=== PATIENT | female | born 1960 | race Caucasian/White ===

== ENCOUNTER → 2017-08-18 | Outpatient (CLI) | payer OTHER ==
--- NOTE | 2017-08-18 11:37 | MM ---
Reason for exam: screening (asymptomatic). Last mammogram was performed 1 year ago. History: Patient is postmenopausal. Family history of premenopausal breast cancer in paternal aunt at age 40. Physical Findings: A clinical breast exam by your physician is recommended on an annual basis and results should be correlated with mammographic findings. MG Screening Mammo w CAD Bilateral CC and MLO view(s) were taken. Prior study comparison: August 17, 2016, bilateral MG 3d screening mammo w/cad. August 14, 2015, bilateral MG 3d screening mammo w/cad. There are scattered fibroglandular densities. There is chronic nodularity in the right breast. Asymmetric breast tissue in the left breast, stable. There is no discrete abnormality. ASSESSMENT: Benign, BI-RAD 2 RECOMMENDATION: Routine screening mammogram of both breasts in 1 year.
== END | disposition home or self-care (01) ==
LOC: RADMAMWWP 07:03
PROVIDERS: ATTEND Family Medicine
DX: Z12.31 Encounter for screening mammogram for malignant neoplasm of breast (principal)

== ENCOUNTER → 2018-08-19 | Outpatient (CLI) | payer BC ==
--- NOTE | 2018-08-19 09:27 | BD ---
EXAMINATION TYPE: Axial Bone Density DATE OF EXAM: 08/19/2018 COMPARISON: NONE CLINICAL HISTORY: Height: 65.5 Weight: 203.2 FRAX RISK QUESTIONS: Alcohol (3 or more units per day): no Family History (Parent hip fracture): no Glucocorticoids (More than 3mos): no (Ex: prednisone, prednisolone, methylprednisolone, dexamethasone, and hydrocortisone). History of Fracture in Adulthood: no Secondary Osteoporosis: 1. Type 1 Diabetes: no 2. Hyperthyroidism: no 3. Menopause before 45: yes 4. Malnutrition: NO 5. Chronic liver disease: no Rheumatoid Arthritis: no Current Tobacco Use: no RISK FACTORS HISTORY OF: Family History of Osteoporosis: yes Active: yes Diet low in dairy products/other sources of calcium: yes Postmenopausal woman: hysterectomy age 46 Lost more than 2 inches in height since high school: yes MEDICATIONS: none Additional History: EXAM MEASUREMENTS: Bone mineral densitometry was performed using the [employer] System. Bone mineral density as measured about the Lumbar spine is: ----- L1-L4(G/cm2): 1.090 T Score Values are as follows: ----- L2: -0.4 ----- L3: -0.7 ----- L4: -0.9 ----- L1-L4: -0.7 Bone mineral density : baseline Bone mineral density about the R hip (g/cm2): 0.899 Bone mineral density about the L hip (g/cm2): 0.886 T Score values are as follows: -----R Neck: -1.0 -----L Neck: -1.1 -----R Total: -0.9 -----L Total: -0.8 Bone mineral density : baseline IMPRESSION: No evidence for osteoporosis or osteopenia. NOTE: T-SCORE=SD OF THE YOUNG ADULT MEAN.
--- NOTE | 2018-08-22 11:58 | MM ---
Reason for exam: screening (asymptomatic). Last mammogram was performed 1 year ago. History: Patient is postmenopausal. Family history of premenopausal breast cancer in paternal aunt at age 40. Physical Findings: A clinical breast exam by your physician is recommended on an annual basis and results should be correlated with mammographic findings. MG 3D Screening Mammo W/Cad Bilateral CC and MLO view(s) were taken. Prior study comparison: August 18, 2017, bilateral MG screening mammo w CAD. August 17, 2016, bilateral MG 3d screening mammo w/cad. The breast tissue is heterogeneously dense. This may lower the sensitivity of mammography. There is chronic nodularity in the right breast. No significant changes when compared with prior studies. ASSESSMENT: Benign, BI-RAD 2 RECOMMENDATION: Routine screening mammogram of both breasts in 1 year.
== END | disposition home or self-care (01) ==
LOC: RADMAMWWP 07:04
PROVIDERS: ATTEND Family Medicine
DX: Z12.31 Encounter for screening mammogram for malignant neoplasm of breast (principal); Z13.820 Encounter for screening for osteoporosis
CPT/HCPCS: 77063; 77067; 77080

== ENCOUNTER → 2019-10-19 | Outpatient (CLI) | payer BC ==
--- NOTE | 2019-10-20 13:37 | MM ---
Reason for exam: screening (asymptomatic). Last mammogram was performed 1 year and 2 months ago. History: Patient is postmenopausal. Family history of premenopausal breast cancer in paternal aunt at age 40. Physical Findings: A clinical breast exam by your physician is recommended on an annual basis and results should be correlated with mammographic findings. MG 3D Screening Mammo W/Cad Bilateral CC and MLO view(s) were taken. Prior study comparison: August 19, 2018, bilateral MG 3d screening mammo w/cad. August 18, 2017, bilateral MG screening mammo w CAD. There are scattered fibroglandular densities. No suspicious abnormality. No significant changes when compared with prior studies. ASSESSMENT: Negative, BI-RAD 1 RECOMMENDATION: Routine screening mammogram of both breasts in 1 year.
== END | disposition home or self-care (01) ==
LOC: RADMAMWWP 07:41
PROVIDERS: ATTEND Family Medicine
DX: Z12.31 Encounter for screening mammogram for malignant neoplasm of breast (principal)
CPT/HCPCS: 77063; 77067

== ENCOUNTER 2020-07-09 13:00 | Emergency (ER) | payer OTHER ==
[2020-07-09] MEDS ORDERED: KETOROLAC 15 MG/ML 1 ML VIAL IVP STA (13:37)
[2020-07-09] MEDS ORDERED: LIDOCAINE 5% PATCH TOPICAL STA (13:38)
--- NOTE | 2020-07-09 13:38 | ED ---
Back Pain HPI - General Chief Complaint: Back Pain/Injury Stated Complaint: low back pain Time Seen by Provider: 07/09/20 13:08 Source: patient Limitations: no limitations - History of Present Illness Initial Comments: Patient is a 59-year-old female presenting to the emergency department with a chief complaint of back pain. Patient states this started 3 days ago after she woke up. Patient reports the pain is located in the right lumbosacral region without any radiation. States forward flexion causes her to have pain. She does report alleviation of the pain with rest. States she saw her primary care who started her on a muscle relaxer and a steroid. Patient reports there is no significant improvement in symptoms. Patient is requesting Toradol to alleviate some of the symptoms. She denies any saddle anesthesia, urinary bowel incontinence. Patient denies history of hypertension but states her blood pressure is likely elevated due to the pain. - Related Data Home Medications Medication Instructions Recorded Confirmed Fish Oil/Dha/Epa [Fish Oil 1,200 1 each PO DAILY 01/18/15 07/24/16 mg Fish Oil] Multivitamins, Thera [Theragran] 1 each PO DAILY 01/18/15 07/24/16 Allergies Allergy/AdvReac Type Severity Reaction Status Date / Time aspirin Allergy Abdominal Verified 07/24/16 11:14 Pain,nausea latex Allergy skin Verified 07/24/16 11:14 redness and irritated Penicillins Allergy Nausea & Verified 07/24/16 11:14 Vomiting,dry mouth Review of Systems ROS Statement: Those systems with pertinent positive or pertinent negative responses have been documented in the HPI. ROS Other: All systems not noted in ROS Statement are negative. Past Medical History Past Medical History: GERD/Reflux Additional Past Medical History / Comment(s): hiatal hernia,freq stools History of Any Multi-Drug Resistant Organisms: None Reported Past Surgical History: Cholecystectomy, Hernia Repair, Hysterectomy, Tubal Ligation Past Anesthesia/Blood Transfusion Reactions: Motion Sickness, Postoperative Nausea & Vomiting (PONV) Additional Past Anesthesia/Blood Transfusion Reaction / Comment(s): never has had a blood transfusion Past Psychological History: No Psychological Hx Reported Past Alcohol Use History: None Reported Additional Past Alcohol Use History / Comment(s): quit smoking 2010, smoked approx 30yrs a david per day Past Drug Use History: None Reported - Past Family History Mother Family Medical History: Congestive Heart Failure (CHF), COPD Father Family Medical History: Congestive Heart Failure (CHF), COPD, Coronary Artery Disease (CAD) Additional Family Medical History / Comment(s): heart stent General Exam Limitations: no limitations General appearance: alert, in no apparent distress, obese Head exam: Present: atraumatic, normocephalic, normal inspection Eye exam: Present: normal appearance, PERRL, EOMI Pupils: Present: normal accommodation ENT exam: Present: normal exam, normal oropharynx, mucous membranes moist, TM's normal bilaterally, normal external ear exam Neck exam: Present: normal inspection, full ROM. Absent: tenderness Respiratory exam: Present: normal lung sounds bilaterally. Absent: respiratory distress, wheezes, rales Cardiovascular Exam: Present: regular rate, normal rhythm, normal heart sounds Extremities exam: Present: normal inspection, full ROM, normal capillary refill. Absent: tenderness Back exam: Present: normal inspection, full ROM, tenderness, paraspinal tenderness (right paraspinal pain). Absent: CVA tenderness (R), CVA tenderness (L), muscle spasm, vertebral tenderness Neurological exam: Present: alert, oriented X3, CN II-XII intact, normal gait Psychiatric exam: Present: normal affect, normal mood. Absent: depressed, agitated, anxious, flat affect Skin exam: Present: warm, dry, intact, normal color Course Vital Signs 07/09/20 13:05 Temperature 100.2 F H Pulse Rate 66 Respiratory 14 Rate Blood Pressure 186/109 O2 Sat by Pulse 98 Oximetry Medical Decision Making - Medical Decision Making Patient 51-year-old male presenting to the emergency department with chief complaint of back pain. On physical examination, patient has right paraspinal tenderness in the lumbosacral region. No red flags. No cauda equina. X-ray of the lumbar region is unremarkable. No trauma to the back. Patient was given Toradol per her request. On reevaluation, patient reports improvement in symptoms. I will discharge the patient with 5 tablets of Toradol and advised her to follow with an training and documentation specialist. Strict return parameters were thoroughly discussed with patient was understanding and agreeable. Case discussed with physician. Disposition Clinical Impression: Mechanical back pain, Strain of lumbar region Disposition: HOME SELF-CARE Condition: Stable Instructions (If sedation given, give patient instructions): Acute Low Back Pain (ED) Additional Instructions: Follow-up with training and documentation specialist. Alternate between Tylenol and Motrin for pain control. Return to emergency department if symptoms worsen. Is patient prescribed a controlled substance at d/c from ED?: No Referrals: Tanna Fernandez DO [Primary Care Provider] - 1-2 days Rose Monterroso DO [Doctor of Osteopathic Medicine] - 1-2 days Time of Disposition: 14:47
[2020-07-09] MEDS ORDERED: KETOROLAC 15 MG/ML 1 ML VIAL IM STA (13:45)
--- NOTE | 2020-07-09 14:33 | XR ---
EXAMINATION TYPE: XR lumbar spine 2 or 3V DATE OF EXAM: 07/09/2020 CLINICAL HISTORY: Pain today. TECHNIQUE: Frontal and lateral images of the lumbar spine are obtained. COMPARISON: CT abdomen and pelvis 2016 FINDINGS: There are 5 lumbar type vertebral bodies redemonstrated. The lumbar spine shows satisfact ory alignment without evidence of acute fracture or dislocation. Vertebral body heights and disk spac e heights are within normal limits. Vascular calcification overlying abdominal aorta. Cholecystectomy clips redemonstrated. Overlying Coils from ventral wall hernia repair surgery redemonstrated. IMPRESSION: As above. No significant change from 2016 CT.
[2020-07-09 15:27] VITALS: BP 169/91; PULSE 63; RESP 17; TEMP 98.4
== END 2020-07-09 15:00 | disposition home or self-care (01) ==
LOC: EC 13:00
DX: S39.012A Strain of muscle, fascia and tendon of lower back, initial encounter (principal); Z88.6 Allergy status to analgesic agent; Z91.040 Latex allergy status; Z88.0 Allergy status to penicillin; Z87.891 Personal history of nicotine dependence; X58.XXXA Exposure to other specified factors, initial encounter
CPT/HCPCS: 72100; 99283; 96372; J1885

== ENCOUNTER 2020-07-25 08:07 | Day surgery (SDC) | payer BC, OTHER ==
[2020-07-23 14:54] VITALS: BMI 33.3
[~2020-07-25 08:07] MED LIST: LACTATED RINGERS 1,000 ML IV SCH; LIDOCAINE 1% (10MG/ML) FOR IV START INTRADERMA PRN
[2020-07-25] MEDS ORDERED: ONDANSETRON 4 MG/2 ML VIAL ONE (08:43)
[2020-07-25 08:44] VITALS: RESP 16; TEMP 98.2
[2020-07-25] MEDS ORDERED: ONDANSETRON 4 MG/2 ML VIAL IVP ONE (08:45)
[2020-07-25] MEDS ORDERED: MIDAZOLAM 2 MG/2 ML VIAL ONE (09:03)
[2020-07-25] MEDS ORDERED: PROPOFOL 10 MG/ML 20 ML VIAL IV ONE (09:03)
[2020-07-25] MEDS ORDERED: LIDOCAINE 1% INJ 10MG/ML (20 ML MDV) ONE (09:03)
[2020-07-25] MEDS ORDERED: fentaNYL (PF) 50 MCG/ML 2 ML AMP ONE (09:03)
--- NOTE | 2020-07-25 09:38 | P.PCN ---
Date of Procedure: 07/25/20 Description of Procedure: BRIEF HISTORY: Patient is a 51-year-old female presenting for outpatient colonoscopy for screening for malignant neoplasm in the colon. Patient has had colonoscopies in the past with polypectomy. She denies any change in bowel habits or abdominal pain. PROCEDURE PERFORMED: Colonoscopy with polypectomy. PREOPERATIVE DIAGNOSIS: Screening for malignant neoplasm colon, personal history of colon polyps, last colonoscopy approximately 1 year ago. ESTIMATED BLOOD LOSS: Minimal. IV sedation per Anesthesia. PROCEDURE: After informed consent was obtained, the patient, was brought into the endoscopy unit. IV sedation was administered by Anesthesia under continuous monitoring. Digital rectal examination was normal. Initially the Olympus CF-190 flexible video colonoscope was then inserted in the rectum, gradually advanced into the cecum without any difficulty. Careful examination was performed as the scope was gradually being withdrawn. Ileocecal valve and the appendiceal orifice were visualized and appeared normal. Prep was excellent. Mucosa of the cecum, ascending colon, transverse colon, descending colon, sigmoid colon, and rectum appeared normal. 3 sessile polyps removed with cold snare polypectomy from the descending colon measuring 4 mm in size, from the splenic flexure measuring 4 mm in size and from the sigmoid colon measuring 3 mm in size. Multiple small mouth diverticula in the sigmoid colon. Retroflexion was performed in the rectum and no lesions were seen. The patient tolerated the procedure well. IMPRESSION: 3 polyps removed with cold snare polypectomy from the sigmoid colon, splenic flexure, and descending colon. Mild sigmoid diverticulosis. RECOMMENDATIONS: Findings of this examination were discussed with the patient . Okay to resume medications today and anticoagulation therapy tomorrow. Await pathology from po lypectomy. We'll recommend repeat colonoscopy in 5 years for colon polyps pending pathology from polypectomys.
[2020-07-25 10:02] VITALS: BP 159/94; PULSE 56
== END 2020-07-25 10:17 | disposition home or self-care (01) ==
LOC: ORWHC2ENDO 08:07
PROVIDERS: ATTEND Internal Medicine
DX: Z12.11 Encounter for screening for malignant neoplasm of colon (principal); D12.4 Benign neoplasm of descending colon; K57.30 Diverticulosis of large intestine without perforation or abscess without bleeding; Z86.010 Personal history of colon polyps; Z87.891 Personal history of nicotine dependence; K21.9 Gastro-esophageal reflux disease without esophagitis; K44.9 Diaphragmatic hernia without obstruction or gangrene; Z90.710 Acquired absence of both cervix and uterus; Z98.51 Tubal ligation status; Z90.49 Acquired absence of other specified parts of digestive tract; Z98.890 Other specified postprocedural states; Z97.2 Presence of dental prosthetic device (complete) (partial); Z79.891 Long term (current) use of opiate analgesic; Z79.899 Other long term (current) drug therapy; Z91.040 Latex allergy status; Z88.6 Allergy status to analgesic agent; Z88.0 Allergy status to penicillin
CPT/HCPCS: 88305; 45385; J2250; J2405; J2001; J3010; J2704

== ENCOUNTER → 2020-12-12 | Outpatient (CLI) | payer OTHER ==
--- NOTE | 2020-12-12 14:34 | MM ---
Reason for exam: screening (asymptomatic). Last mammogram was performed 1 year and 2 months ago. History: Patient is postmenopausal. Family history of premenopausal breast cancer in paternal aunt at age 40. Physical Findings: A clinical breast exam by your physician is recommended on an annual basis and results should be correlated with mammographic findings. MG 3D Screening Mammo W/Cad Bilateral CC and MLO view(s) were taken. Prior study comparison: October 19, 2019, bilateral MG 3d screening mammo w/cad. August 19, 2018, bilateral MG 3d screening mammo w/cad. There are scattered fibroglandular densities. Focal asymmetry left breast. No significant changes when compared with prior studies. ASSESSMENT: Benign, BI-RAD 2 RECOMMENDATION: Routine screening mammogram of both breasts in 1 year.
== END | disposition home or self-care (01) ==
LOC: RADMAMWWP 07:08
PROVIDERS: ATTEND Family Medicine
DX: Z12.31 Encounter for screening mammogram for malignant neoplasm of breast (principal); Z80.3 Family history of malignant neoplasm of breast; Z78.0 Asymptomatic menopausal state
CPT/HCPCS: 77063; 77067

== ENCOUNTER → 2021-04-02 | Outpatient (CLI) | payer OTHER ==
[2021-04-02 23:29] LABS: Basophils # (A) 0.07 X 10*3/uL (0.00-0.10); Basophils % (A) 1.2 %; Eosinophils # (A) 0.17 X 10*3/uL (0.04-0.35); Eosinophils % (A) 2.8 %; HCT 43.4 % (37.2-46.3); HGB 14.6 g/dL (12.0-15.0); Lymphocytes # (A) 2.25 X 10*3/uL (0.90-5.00); Lymphocytes % (A) 37.1 %; MCH 31.3 pg (27.0-32.0); MCHC 33.6 g/dL (32.0-37.0); MCV 93.1 fL (80.0-97.0); Monocytes # (A) 0.61 X 10*3/uL (0.20-1.00); Monocytes % (A) 10.1 %; Neutrophils # (A) 2.95 X 10*3/uL (1.80-7.70); Neutrophils % (A) 48.6 %; Platelet Count 285 X 10*3/uL (140-440); RBC 4.66 X 10*6/uL (4.10-5.20); RDW 11.7 % (11.5-14.5); WBC 6.06 X 10*3/uL (4.50-10.00)
[2021-04-03 01:48] LABS: Gliadin AB IgA, Deaminated NEGATIVE (NEGATIVE); Gliadin AB IgA, Unit <0.2 U/mL; Gliadin AB IgG, Deaminated NEGATIVE (NEGATIVE)
[2021-04-03 13:29] LABS: T4, Free (Free Thyroxine) 1.2 ng/dL (0.80-1.80)
[2021-04-03 16:32] LABS: African American GFR (CKD) 115.6 (60.0-200.0); Albumin 4.7 g/dL (3.80-4.90); Albumin/Globulin Ratio 1.96 (1.60-3.17); Anion Gap 13.8 mmol/L (4.00-12.00); BUN/Creat Ratio 18.33 Ratio (12.00-20.00); Calcium 9.6 mg/dL (8.7-10.3); Carbon Dioxide 23.2 mmol/L (21.6-31.8); Globulin 2.4 g/dL (1.6-3.3); Non-African American GFR(CKD) 99.8 (60.0-200.0); Total Bilirubin 0.6 mg/dL (0.3-1.2); Total Protein 7.1 g/dL (6.2-8.2)
== END | disposition home or self-care (01) ==
LOC: LABWHC1 15:31
PROVIDERS: ATTEND Internal Medicine
DX: R10.9 Unspecified abdominal pain (principal)
CPT/HCPCS: 36415; 80053; 82150; 83516; 83690; 84439; 84443; 85025

== ENCOUNTER → 2021-05-02 | Outpatient (CLI) | payer OTHER ==
--- NOTE | 2021-05-02 07:56 | US ---
EXAMINATION TYPE: US abdomen complete DATE OF EXAM: 05/02/2021 COMPARISON: CT CLINICAL HISTORY: R10.9 ABDOMINAL PAIN. ABD pain EXAM MEASUREMENTS: Liver Length: 19.6 cm CBD: 0.9 cm Spleen: 9.3 cm Right Kidney: 11.0 x 4.8 x 4.9 cm Left Kidney: 11.0 x 5.5 x 5.3 cm Pancreas: wnl, tail obscured by overlying bowel gas Liver: Enlarged, heterogeneous Gallbladder: Surgically absent Evidence for sonographic Saul's sign: No CBD: wnl for post sasha Spleen: wnl Right Kidney: wnl Left Kidney: wnl Upper IVC: wnl Abd Aorta: wnl IMPRESSION: 1. Hepatomegaly
== END | disposition home or self-care (01) ==
LOC: RADUSWWP 07:03
PROVIDERS: ATTEND Internal Medicine
DX: R10.9 Unspecified abdominal pain (principal); Z90.49 Acquired absence of other specified parts of digestive tract
CPT/HCPCS: 76700

== ENCOUNTER → 2021-08-22 | Outpatient (CLI) | payer OTHER ==
--- NOTE | 2021-08-22 07:49 | MR ---
EXAMINATION TYPE: MR abdomen wo/w con DATE OF EXAM: 08/22/2021 COMPARISON: CT abdomen and pelvis October 24, 2015. Ultrasound abdomen May 02, 2021 HISTORY: abnormal ultrasound, hepatomegaly. CONTRAST: Standard multiplanar, multisequence MRI departmental protocol images were obtained without contrast a nd with 10 mL intravenous Gadavist gadolinium contrast. Imaging performed of the abdomen focusing on the liver. FINDINGS: Liver: Mild hepatomegaly with prominent right hepatic lobe redemonstrated. There is diffuse signal dr opout consistent with diffuse fatty infiltration. Gallbladder is surgically absent. Satisfactory enha ncement of the portal vein which is normal in size. Satisfactory opacification of draining hepatic ve ins into IVC. No concerning solid or cystic intrahepatic mass. No intrahepatic or extrahepatic biliar y dilatation. No surrounding ascites. Other: The spleen, pancreas, and both adrenal glands appear within normal limits. Subcentimeter thin- walled cyst lower pole right kidney noted postcontrast coronal image 66. No hydronephrosis seen bilat erally. No concerning small or large bowel dilatation. Osseous structures are intact. No intra-abdomi nal ascites. No greater than 1 cm abdominal adenopathy. IMPRESSION: Mild hepatomegaly with prominent right hepatic lobe and diffuse fatty infiltration of cinthya er redemonstrated. No significant change from 2016 CT.
== END | disposition home or self-care (01) ==
LOC: RADMRIMAIN 06:38
PROVIDERS: ATTEND Family Medicine
DX: R16.0 Hepatomegaly, not elsewhere classified (principal); K76.0 Fatty (change of) liver, not elsewhere classified
CPT/HCPCS: 74183; A9585

== ENCOUNTER → 2022-01-05 | Outpatient (CLI) | payer OTHER ==
--- NOTE | 2022-01-07 10:37 | MM ---
Reason for exam: screening (asymptomatic). Last mammogram was performed 1 year and 1 month ago. History: Patient is postmenopausal. Family history of premenopausal breast cancer in paternal aunt at age 40. Physical Findings: A clinical breast exam by your physician is recommended on an annual basis and results should be correlated with mammographic findings. MG 3D Screening Mammo W/Cad Bilateral CC and MLO view(s) were taken. Prior study comparison: December 12, 2020, bilateral MG 3d screening mammo w/cad. October 19, 2019, bilateral MG 3d screening mammo w/cad. There are scattered fibroglandular densities. There is chronic nodularity in the right breast. No significant changes when compared with prior studies. ASSESSMENT: Benign, BI-RAD 2 RECOMMENDATION: Routine screening mammogram of both breasts in 1 year.
== END | disposition home or self-care (01) ==
LOC: RADMAMWWP 07:32
PROVIDERS: ATTEND Family Medicine
DX: Z12.31 Encounter for screening mammogram for malignant neoplasm of breast (principal); Z80.3 Family history of malignant neoplasm of breast; Z78.0 Asymptomatic menopausal state
CPT/HCPCS: 77063; 77067

== ENCOUNTER → 2022-01-05 | Outpatient (CLI) | payer OTHER ==
--- NOTE | 2022-01-05 10:30 | BD ---
EXAMINATION TYPE: Axial Bone Density DATE OF EXAM: 01/05/2022 COMPARISON: NONE CLINICAL HISTORY: 61 years year old Female. ICD-10 CODE: Z13.820 screening Height: 5 FT 5 IN Weight: 211 FRAX RISK QUESTIONS: Alcohol (3 or more units per day): NO Family History (Parent hip fracture): NO Glucocorticoids (More than 3mos): NO (Ex: prednisone, prednisolone, methylprednisolone, dexamethasone, and hydrocortisone). History of Fracture in Adulthood: NO Secondary Osteoporosis: 1. Type 1 Diabetes: NO 2. Hyperthyroidism: NO 3. Menopause before 45: NO 4. Malnutrition: NO 5. Chronic liver disease: FATTY Rheumatoid Arthritis: NO Current Tobacco Use: FORMER RISK FACTORS HISTORY OF: Surgery to Spine/Hip(right/left)/Wrist (right/left): NO Family History of Osteoporosis: YES Active: YES Diet low in dairy products/other sources of calcium: NO Postmenopausal woman: YES Take estrogen and/or progesterone medications: NO Lost more than 2 inches in height since high school: NO Frequent falls: NO Poor Health: GOOD Hyperparathyroidism: NO Adrenal Insufficiency: NO MEDICATIONS: Additional Medications: LOSARTAN, OMEPRAZOLE Additional History: EXAM MEASUREMENTS: Bone mineral densitometry was performed using the [employer] System. Bone mineral density as measured about the Lumbar spine is: ----- L1-L4(G/cm2): 1.050 T Score Values are as follows: ----- L1: -0.2 ----- L2: -1.7 ----- L3: -1.0 ----- L4: -1.6 ----- L1-L4: -1.1 Bone mineral density has: DECREASED -7.8 % since study of: 2018 Bone mineral density about the R hip (g/cm2): 0.806 Bone mineral density about the L hip (g/cm2): 0.823 T Score values are as follows: -----R Neck: -1.7 -----L Neck: -1.5 -----R Total: -1.3 -----L Total: -1.0 Bone mineral density has: DECREASED -4.1 % since study of: 2018 FRAX%s: The graph provided illustrates a 7.9 % chance for a major osteoporotic fx and a 0.7 % chance for the hips probability for fx in 10 years time. IMPRESSION: Osteopenia NOTE: T-SCORE=SD OF THE YOUNG ADULT MEAN.
== END | disposition home or self-care (01) ==
LOC: RADBDWWP 07:35
PROVIDERS: ATTEND Family Medicine
DX: M85.89 Other specified disorders of bone density and structure, multiple sites (principal)
CPT/HCPCS: 77080

== ENCOUNTER → 2023-01-25 | Outpatient (CLI) | payer OTHER ==
--- NOTE | 2023-01-26 11:30 | US ---
EXAMINATION TYPE: US venous doppler duplex LE LT DATE OF EXAM: 01/25/2023 4:19 PM COMPARISON: Bilateral lower extremity venous ultrasound 07/24/2016 CLINICAL INDICATION: Female, 62 years old with history of [id number] PAIN IN LEFT LOWER LEG, EDEMA R600; left leg edema SIDE PERFORMED: Left TECHNIQUE: The lower extremity deep venous system is examined utilizing real time linear array sonog pino with graded compression, doppler sonography and color-flow sonography. VESSELS IMAGED: Common Femoral Vein Deep Femoral Vein Greater Saphenous Vein * Femoral Vein Popliteal Vein Small Saphenous Vein * Proximal Calf Veins (* superficial vessels) Grayscale, color doppler, spectral doppler imaging performed of the deep veins of the left lower extr emity. There is normal flow, compressibility, vascular waveforms. Left Leg: Negative for DVT IMPRESSION: No deep venous thrombosis of the left lower extremity.
--- NOTE | 2023-01-26 15:37 | MM ---
Reason for Exam: Screening (asymptomatic). Last mammogram was performed 1 year(s) and 1 month(s) ago. Patient History: Menarche at age 15. First Full-Term at age 17. Hysterectomy at age 41. Postmenopausal. Paternal aunt had breast cancer, age 40. Risk Values: Ethel 5 year model risk: 1.0%. NCI Lifetime model risk: 4.7%. Prior Study Comparison: 10/19/2019 Bilateral Screening Mammogram, [facility]. 12/12/2020 Bilateral Screening Mammogram, [facility]. 01/05/2022 Bilateral Screening Mammogram, [facility]. Tissue Density: There are scattered fibroglandular densities. Findings: Analyzed By CAD. Pattern appears stable. Chronic nodularity is within the right breast. There is focal asymmetry within the left breast which is stable no significant interval change is evident. No suspicious groups of microcalcifications, spiculated or lobular masses, architectural distortion or other secondary signs of malignancy are mammographically apparent. Overall Assessment: Benign, BI-RAD 2 Management: Screening Mammogram of both breasts in 1 year. A negative mammogram report should not preclude additional follow up of suspicious palpable abnormalities. Patient should continue monthly self breast exam. A clinical breast exam by your physician is recommended on an annual basis and results should be correlated with mammographic findings. Electronically signed and approved by: Mars Cloud D.O. Radiologis
== END | disposition home or self-care (01) ==
LOC: RADMAMWWP 15:44
PROVIDERS: ATTEND Family Medicine
DX: Z12.31 Encounter for screening mammogram for malignant neoplasm of breast (principal); M79.662 Pain in left lower leg; R60.0 Localized edema; Z78.0 Asymptomatic menopausal state; Z80.3 Family history of malignant neoplasm of breast
CPT/HCPCS: 77063; 77067

== ENCOUNTER → 2023-12-06 | Outpatient (CLI) | payer OTHER ==
--- NOTE | 2023-12-06 15:43 | CA ---
Stress Echo Report Glory Valdovinos Age: 62 Gender: F : 1960 Exam Date: 12/06/2023 09:39 Exam Location: [facility] Ht (in): 66 Wt (lb): 198 Ordering Physician: Tanna Fernandez DO Referring Physician: Lucy Reinoso [employer] Operator: Kate Storey RDCS Technologist Procedure CPT: Indication: I10 ESSENTIAL (PRIMARY) HYPERTENSION ICD-9 Codes: Rhythm: Patient History: Hypertension, Smoker, Family history, Dyspnea/SOB Cardiac Medications: Medications in past 24 hours: Contrast: Stress Results Protocol: Michael Total dose(mL): Exercise Duration (min:sec): 9:[address] Depression (mm): Angina Score: Brambila Score: METS: 10.9 Resting HR: 60 Resting BP: 129 / 77 Peak HR: 139 Peak BP: 220 / 93 Max Predicted HR: 159 87 % Max Predicted HR Target HR: 135 Double Product: [id number] Stress Summary: The patient's target heart rate was achieved BP Response: Normal Reason for Termination: Reached target heart rate or work-load Cardiac Symptoms: Short of Breath ECG Analysis Resting ECG: Sinus bradycardia, heart rate 57 beats a minute. Stress ECG: No significant ST-T wave changes diagnostic for ischemia by ST segment analysis Arrhythmia: There were no sustained arrhythmias. There were occasional monomorphic PVCs during the stress test. Echo Analysis Resting Echo: Normal global and segmental systolic function. No resting regional wall motion abnormality Peak Echo Analysis: Normal global augmentation of all segments. No obvious stress-induced regional wall motion abnormality MEASUREMENTS (Male/Female) Normal Values CONCLUSIONS Good exercise tolerance for age achieving 10.9 METs Nonischemic ECG and echocardiographic response to exercise Mildly hypertensive response to peak exercise. Overall normal treadmill stress echo Dr Rc Ricci (Electronically Signed) Final Date: 06 December 2023 15:42
== END | disposition home or self-care (01) ==
LOC: RADNMMAIN 09:00
PROVIDERS: ATTEND Family Medicine
DX: I10 Essential (primary) hypertension (principal)
CPT/HCPCS: 93017; 93351

== ENCOUNTER → 2024-01-31 | Outpatient (CLI) | payer OTHER ==
--- NOTE | 2024-01-31 18:29 | BD ---
EXAMINATION TYPE: Axial Bone Density DATE OF EXAM: 01/31/2024 CLINICAL HISTORY: 63 years old Female. ICD-10 CODE: Z78.0 ASYMPTOMATIC MENOPAUSAL Height: 63.7in Weight: 205lb FRAX RISK QUESTIONS: Secondary Osteoporosis: RISK FACTORS HISTORY OF: MEDICATIONS: EXAM MEASUREMENTS: Bone mineral densitometry was performed using the [employer] System. Bone mineral density as measured about the Lumbar spine is: ----- L1-L4(G/cm2): 1.056 T Score Values are as follows: ----- L1: 0.4 ----- L2: -1.6 ----- L3: -1.1 ----- L4: -1.7 ----- L1-L4: -1.0 Z Score Values are as follows: ----- L1: 0.8 ----- L2: -1.2 ----- L3: -0.7 ----- L4: -1.3 ----- L1-L4: -0.6 Bone mineral density has: Increased 0.6% since study of: 01-05-22 Bone mineral density about the R hip (g/cm2): 0.833 Bone mineral density about the L hip (g/cm2): 0.847 T Score values are as follows: -----R Neck: -1.8 -----L Neck: -1.9 -----R Total: -1.4 -----L Total: -1.3 Z Score values are as follows: -----R Neck: -1.1 -----L Neck: -1.2 -----R Total: -1.0 -----L Total: -0.9 Bone mineral density has: Decreased -2.8% since study of: 01-05-22 FRAX%s: The graph provided illustrates a 9.1% chance for a major osteoporotic fx and a 1.1% chance fo r the hips probability for fx in 10 years time. IMPRESSION: Osteopenia (T Score between -2.5 and -1). There is slightly increased risk of fracture and the patient may be considered for treatment. Re-Screen 2-5 years. NOTE: T-SCORE=SD OF THE YOUNG ADULT MEAN.
--- NOTE | 2024-01-31 19:39 | MM ---
Reason for Exam: Screening (asymptomatic). Last screening mammogram was performed 12 month(s) ago. Patient History: Menarche at age 15. First Full-Term at age 17. Hysterectomy at age 41. Postmenopausal. Paternal aunt had breast cancer, age 40. Risk Values: Ethel 5 year model risk: 1.0%. NCI Lifetime model risk: 4.6%. Prior Study Comparison: 12/12/2020 Bilateral Screening Mammogram, [facility]. 01/05/2022 Bilateral Screening Mammogram, [facility]. 01/25/2023 Bilateral MG 3D screening mammo w/cad, [facility]. Tissue Density: There are scattered areas of fibroglandular density. Findings: Analyzed By CAD. Chronic nodularity right breast. There is no suspicious group of microcalcifications or new suspicious mass in either breast. Overall Assessment: Benign, BI-RAD 2 Management: Screening Mammogram of both breasts in 1 year. . Patient should continue monthly self-breast exams. A clinical breast exam by your physician is recommended on an annual basis. This exam should not preclude additional follow-up of suspicious palpable abnormalities. Note on Ethel scores and lifetime risk: 1. A Ethel score greater than 3% is considered moderate risk. If this is the case, consider specialist referral to assess eligibility for a risk reducing agent. 2. If overall lifetime risk for the development of breast cancer is 20% or higher, the patient may qualify for future screening with alternating mammogram and breast MRI. Electronically signed and approved by: Mar Martinez M.D. Radiologist
== END | disposition home or self-care (01) ==
LOC: RADMAMWWP 13:27
PROVIDERS: ATTEND Family Medicine
DX: Z12.31 Encounter for screening mammogram for malignant neoplasm of breast (principal); M85.89 Other specified disorders of bone density and structure, multiple sites; Z78.0 Asymptomatic menopausal state; Z80.3 Family history of malignant neoplasm of breast
CPT/HCPCS: 77063; 77067; 77080

== ENCOUNTER → 2025-01-09 | Outpatient (CLI) | payer OTHER ==
--- NOTE | 2025-01-09 10:59 | US ---
EXAMINATION TYPE: US abdomen complete DATE OF EXAM: 01/09/2025 COMPARISON: US 2024 CLINICAL INDICATION: Female, 64 years old with history of R10.32 LEFT LOWER QUADRANT PAIN; TECHNIQUE: Grayscale and color Doppler imaging of the abdomen was performed. FINDINGS: EXAM MEASUREMENTS: Liver Length: 20.0 cm CBD: 0.8 cm Spleen: 9.8 cm Right Kidney: 10.3 x 5.2 x 4.4 cm Left Kidney: 11.2 x 5.4 x 5.3 cm Difficult and limited study due to patient body habitus Pancreas: visualized portions wnl, limited by overlying midline bowel gas Liver: enlarged, attenuating, increased echogenicity Gallbladder: surgically absent CBD: wnl Spleen: visualized portions wnl, limited by overlying bowel gas Right Kidney: wnl Left Kidney: wnl Upper IVC: wnl Abd Aorta: visualized portions wnl, limited by overlying midline bowel gas The liver is enlarged and diffusely echogenic without focal lesion. No overt surface nodularity ident ified. The intrahepatic portion of the IVC and proximal abdominal aorta are within normal limits. Gal lbladder is surgically absent. Common bile duct is unremarkable. The visualized portions of the ruffin creas are homogenous. The spleen is unremarkable. Kidneys are symmetric and free of hydronephrosis. No renal lesions are seen. IMPRESSION: Hepatomegaly with diffuse fatty infiltration. No focal lesion. [facility], , 01/09/2025 10:57 AM
--- NOTE | 2025-01-09 11:01 | US ---
EXAMINATION TYPE: US pelvic complete DATE OF EXAM: 01/09/2025 COMPARISON: CT abdomen and pelvis 10/24/2015 CLINICAL INDICATION: Female, 64 years old with history of R10.32 Left lower quadrant pain; TECHNIQUE: Transabdominal (TA). FINDINGS: Date of LMP: 2003 EXAM MEASUREMENTS: Right Ovary: 3.9 x 2.2 x 2.3 cm Left Ovary: 3.0 x 1.6 x 2.1 cm 1. Uterus: surgically absent 2. Endometrium: surgically absent 3. Right Ovary: wnl 4. Left Ovary: wnl 5. Bilateral Adnexa: wnl 6. Posterior cul-de-sac: wnl Uterus and endometrium are surgically absent. Both ovaries appear unremarkable. No free fluid. IMPRESSION: 1. No ultrasound evidence for acute pelvic process. 2. Postsurgical changes from hysterectomy. [facility], , 01/09/2025 10:58 AM
== END | disposition home or self-care (01) ==
LOC: RADUSWWP 09:59
PROVIDERS: ATTEND Family Medicine
DX: R16.0 Hepatomegaly, not elsewhere classified (principal); K76.0 Fatty (change of) liver, not elsewhere classified; Z90.710 Acquired absence of both cervix and uterus
CPT/HCPCS: 76700; 76856